=== PATIENT | female | born 1960 | race Caucasian/White ===

== ENCOUNTER 2016-05-14 21:48 | Emergency (ER) | payer OTHER ==
[~2016-05-14] VITALS: Ht 162.6 cm; Wt 81.6 kg
[2016-05-14 21:57] VITALS: BP 176/92
== END 2016-05-15 01:47 | disposition home or self-care (01) ==
LOC: ER 21:52
DX: H60.91 Unspecified otitis externa, right ear (principal)
CPT/HCPCS: 99283; A4606; Z7610